=== PATIENT | male | born 1950 | race African-American/Black ===

== ENCOUNTER 2019-07-14 18:05 | Emergency (ER) | payer OTHER ==
[~2019-07-14] VITALS: Ht 175.3 cm; Wt 80.0 kg
[2019-07-14] MEDS ORDERED: SODIUM CHLORIDE 0.9% 1,000 ML IV ONE (18:52)
[2019-07-14 19:55] LABS: CLARITY URINE CLEAR (CLEAR); COLOR URINE YELLOW (YELLOW); KETONES URINE 1+ (NEGATIVE); LEUKOCYTE ESTERASE URINE NEGATIVE (NEGATIVE); NITRITE URINE NEGATIVE (NEGATIVE); OCCULT BLOOD URINE 1+ (NEGATIVE); PH URINE 5.5 (4.5-8.0); PROTEIN URINE 2+ (NEGATIVE)
[2019-07-14 19:57] LABS: BASOPHILS % 0.4 % (0.0-2.0); EOSINOPHILS % 0.1 % (0.0-5.0); HEMOGLOBIN. 13.5 g/dL (14.0-18.0); LYMPHOCYTES % 14.5 % (20.0-50.0); MEAN CORPUSCULAR HEMOGLOBIN 30.9 pg (28.0-32.0); MEAN CORPUSCULAR VOLUME 91.4 fL (80.0-94.0); MEAN PLATELET VOLUME 9.7 fl (7.4-10.4); PLATELET 114 x1000/uL (130-400); RED BLOOD CELL COUNT 4.38 mill/uL (4.7-6.1); RED CELL DISTRIBUTION WIDTH 14.4 % (11.6-14.6)
[2019-07-14 20:00] LABS: CHLORIDE 103 mEq/L (98-107)
[2019-07-14 20:01] LABS: INR 1.1; PROTHROMBIN TIME 10.8 sec (9.6-11.0)
[2019-07-14 20:05] LABS: ETHANOL BLOOD < 10 mg/dL
[2019-07-14 20:08] LABS: *AMPHETAMINES SCREEN URINE NEGATIVE (NEGATIVE); *BARBITURATES SCREEN URINE NEGATIVE (NEGATIVE); *BENZODIAZEPINES SCREEN URINE NEGATIVE (NEGATIVE); *COCAINE SCREEN URINE NEGATIVE (NEGATIVE); METHADONE URINE SCREEN NEGATIVE (NEGATIVE); OPIATES URINE SCREEN NEGATIVE (NEGATIVE)
[2019-07-14 20:09] LABS: CREATINE KINASE 309 IU/L (39-308)
[2019-07-14 20:09] LABS: CANNABINOID URINE SCREEN NEGATIVE (NEGATIVE); PHENCYCLIDINE URINE SCREEN NEGATIVE (NEGATIVE)
[2019-07-14] MEDS ORDERED: ASPIRIN 81MG TABLET PO ONE (20:30)
[2019-07-14] MEDS ORDERED: MORPHINE SULFATE 4 MG/ML CPJ (NOT FOR IM USE) IV STA (21:24)
[2019-07-14] MEDS ORDERED: ONDANSETRON HCL 4MG/2ML INJ IV STA (21:24)
[2019-07-14] MEDS ORDERED: NITROGLYCERIN OINT 1GM/INCH UDPKT TD ONE (21:30)
[2019-07-14 23:30] VITALS: BP 159/99
== END 2019-07-14 23:44 | disposition short-term general hospital (02) ==
LOC: ER 18:05 → EDBEDREQ 19:10 → ER 23:44 → CANBEDREQ 07-15 00:15
DX: R07.9 Chest pain, unspecified (principal); R55 Syncope and collapse; I11.9 Hypertensive heart disease without heart failure
CPT/HCPCS: 36415; 70450; 71045; 80053; 80305; 80307; 80320; 80329; 81003; 82140; 82550; 83690; 83880; 84484; 85025; 85610; 93005; 96361; 96374; 96375; 99291; J2270; J2405; J7030; G0480